=== PATIENT | female | born 2000 | race African-American/Black ===

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

== ENCOUNTER 2018-05-22 22:23 | Emergency (ER) | payer OTHER ==
[2018-05-22] MEDS ORDERED: BUFFERED LIDOCAINE 10 ML SYRINGE SUBQ STA (22:36)
--- NOTE | 2018-05-22 22:39 | ED Physician Documentation ---
PD HPI UPPER EXT INJURY - Stated complaint Stated Complaint: THUMB SWELLING - Chief complaint Chief Complaint: Ext Problem - History obtained from History obtained from: Patient - History of Present Illness Location: Left (Without injury she has had increasing pain of the left thumb for almost 2 weeks that is unbearable today with swelling of the pulp. No fevers. No possibility of .) Review of Systems Constitutional: denies: Fever, Chills GI: reports: Reviewed and negative : reports: Reviewed and negative PD PAST MEDICAL HISTORY - Past Surgical History Past Surgical History: No - Present Medications Home Medications: Ambulatory Orders Medication Instructions Recorded Confirmed Cephalexin [Keflex] 500 mg PO QID #40 capsule 05/22/18 - Allergies Allergies/Adverse Reactions: Allergies Allergy/AdvReac Type Severity Reaction Status Date / Time No Known Drug Allergies Allergy Verified 05/22/18 22:30 - Social History Does the pt smoke?: No Smoking Status: Never smoker Does the pt drink ETOH?: Yes Does the pt have substance abuse?: No - Immunizations Immunizations are current?: Yes - POLST Patient has POLST: No PD ED PE NORMAL - Vitals Vital signs reviewed: Yes - General General: Alert and oriented X 3, No acute distress - Extremities Extremities: Other (She has a felon of the left thumb pulp which is not quite tense were red yet but it is warm.) - Neuro Neuro: Alert and oriented X 3, Normal speech Results - Vitals Vitals: Vital Signs - 24 hr 05/22/18 22:25 Temperature 37.0 C Heart Rate 94 Respiratory 16 Rate Blood Pressure 123/80 O2 Saturation 97 Oxygen O2 Source Room air Procedures - Abscess I&D (location) L thumb felon Preparation: Chlorhexadine, Other (Digital block with buffered lidocaine) Incision: Other (The radial side of the nailbed started leaking pus after the digital block with manipulation in the tiny incision, only about 3 mm was made in the pulp and there was not really any pus found there. A dressing was placed and a culture was obtained.) PD MEDICAL DECISION MAKING - Sepsis Event Vital Signs: Vital Signs - 24 hr 05/22/18 22:25 Temperature 37.0 C Heart Rate 94 Respiratory 16 Rate Blood Pressure 123/80 O2 Saturation 97 Oxygen O2 Source Room air Departure - Departure Disposition: 01 Home, Self Care Clinical Impression: Felon of finger of left hand Condition: Good Instructions: ED Abscess IandD Follow-Up: [facility] [Provider Group] Prescriptions: Cephalexin [Keflex] 500 mg PO QID #40 capsule Comments: Schedule wound check with your doctor on Sunday. Return if worsening.
[2018-05-22] MEDS ORDERED: cephALEXin 250 MG CAPSULE PO STA (23:09)
[2018-05-22 23:24] VITALS: BP 132/91
== END 2018-05-22 23:24 | disposition home or self-care (01) ==
LOC: ED 22:23
DX: L03.012 Cellulitis of left finger (principal)
CPT/HCPCS: 10060; 87070; 87205; 99283; A9270; 87181

== ENCOUNTER 2020-12-05 10:37 | Outpatient (CLI) | payer OTHER | END 2020-12-05 10:38 | disposition home or self-care (01) | LOC: LAB 10:37 | PROVIDERS: ATTEND Surgery Surgical Oncology | DX: Z01.89 Encounter for other specified special examinations (principal) | CPT/HCPCS: 36415 ==

== ENCOUNTER 2021-09-21 21:55 | Emergency (ER) | payer SELFPAY ==
[2021-09-21 22:03] VITALS: BP 112/69
--- NOTE | 2021-09-21 22:44 | ED Physician Documentation ---
PD HPI SKIN - Stated complaint Stated Complaint: ALLERGIC RX,ITCHY - Chief complaint Chief Complaint: Allergic Rx - History obtained from History obtained from: Patient - History of Present Illness Timing - onset: How many days ago (5) Timing - duration: Days (5) Timing - details: Gradual onset, Still present Location: Neck, Chest, RUE, LUE Quality / character: Itchy, Discolored, Raised, Crusted. No: Draining Associated symptoms: No: Fever, Myalgias, Joint pain, Headache, Facial swelling, Dyspnea, Abd pain, N/V/D, Urinary sx Contributing factors: Other (went to meet alfredo family in [place] last month and borrowed a jacket.) Similar symptoms before: Has not had sx before Recently seen: Emergency Dept (Seen at [facility] ED where their focus was her lungs and she has no complaints.) - Additional information Additional information: 21-year-old female has developed a rash around her neck and her right forearm and under her breasts. She states is very itchy and it has been present for about 5 days. She has been to [place] to visit her maximilian's family and they are she borrowed a jacket. This was about 1 month ago. She has showered and and used cortisone cream and she continues to have itching and more spots breaking out. Review of Systems Constitutional: denies: Fever Ears: denies: Ear pain Nose: denies: Congestion Throat: denies: Sore throat Cardiac: denies: Chest pain / pressure Respiratory: denies: Dyspnea, Cough GI: denies: Abdominal Pain, Nausea, Vomiting : denies: Dysuria Skin: reports: Rash Musculoskeletal: denies: Neck pain, Back pain, Extremity pain PD PAST MEDICAL HISTORY - Past Medical History Cardiovascular: None Respiratory: None Neuro: None Endocrine/Autoimmune: None GI: None COOK CANDY: None : None HEENT: None Psych: None Musculoskeletal: None Derm: None - Past Surgical History Past Surgical History: No - Present Medications Home Medications: Ambulatory Orders Medication Instructions Recorded Confirmed Permethrin 5% Cream [Permethrin 30 gm TOP ONCE #60 gm 09/21/21 Cream] - Allergies Allergies/Adverse Reactions: Allergies Allergy/AdvReac Type Severity Reaction Status Date / Time No Known Drug Allergies Allergy Verified 09/21/21 21:59 - Social History Does the pt smoke?: No Smoking Status: Never smoker Does the pt drink ETOH?: Yes ETOH Use: Wine Does the pt have substance abuse?: Yes Substance Use and Type: Marijuana - Immunizations Immunizations are current?: Yes - POLST Patient has POLST: No PD ED PE NORMAL - Vitals Vital signs reviewed: Yes (normal ) - General General: Alert and oriented X 3, No acute distress, Well developed/nourished - HEENT HEENT: Atraumatic, PERRL, EOMI - Neck Neck: Supple, no meningeal sign, No bony TTP, Other (around the neck posteriorly there are multiple plaques with crusting and serpantine linear segments. ) - Respiratory Respiratory: No respiratory distress - Derm Derm: Normal color, Warm and dry, Other (rash is described worse over the neck less on the right forearm and even less below the breasts. ) - Extremities Extremities: No deformity, No edema - Neuro Neuro: Alert and oriented X 3, marine steward 2-12 intact, No motor deficit, No sensory deficit, Normal speech Eye Opening: Spontaneous Motor: Obeys Commands Verbal: Oriented GCS Score: 15 - Psych Psych: Normal mood, Normal affect Results - Vitals Vitals: Vital Signs - 24 hr 09/21/21 21:59 Temperature 36.6 C Heart Rate 86 Respiratory 18 Rate Blood Pressure 112/69 O2 Saturation 98 Oxygen O2 Source Room air PD MEDICAL DECISION MAKING - ED course Complexity details: reviewed results, re-evaluated patient, considered differential, d/w patient ED course: 21 y/o female with a puritic rash that is consistent with scabies is prescribed permithrin with follow up with derm for failure. Departure - Departure Disposition: 01 Home, Self Care Clinical Impression: Scabies Condition: Stable Instructions: ED Scabies Follow-Up: [facility] [Provider Group] [facility] [Provider Group] Prescriptions: Permethrin 5% Cream [Permethrin Cream] 30 gm TOP ONCE #60 gm Comments: Aujuna, Today it appears the rash you have is most consistent with scabies. This usually takes about 1 month to appear after exposure. Itching is the primary symptom with a rash. The skin is very uncomfortable. The treatment is fairly straightforward. Use the permethrin neck down and shower in the morning. Repeat in 1 week. In addition wash your clothing and bedding. If you do not have relief of these symptoms with treatment the follow-up should be with [facility]. The script for permethrin has been e-scribed to [facility] in [place]. Discharge Date/Time: 09/21/21 23:02
[2021-09-21] MEDS: PERMETHRIN 5% CREAM 60 GM TUBE TOP ONE (22:52)
== END 2021-09-21 23:02 | disposition home or self-care (01) ==
LOC: ED 21:55
DX: B86 Scabies (principal)
CPT/HCPCS: 99282; 99283

== ENCOUNTER 2021-12-10 03:56 | Emergency (ER) | payer OTHER ==
--- NOTE | 2021-12-10 03:56 | ED Physician Documentation ---
History of Present Illness - Stated complaint Stated Complaint: FIT - History obtained from History obtained from: Patient, Police - History of Present Illness Timing: Other (asymptomatic) Pain level now: 0 - Additonal information Additional information: brought in by police for a fit for confinement exam. Patient is under arrest for possible DUI. Patient is awake, alert, answers appropriately, and asymptomatic. Review of Systems Cardiac: denies: Chest pain / pressure Respiratory: denies: Dyspnea GI: denies: Abdominal Pain : denies: Now [facility] PD PAST MEDICAL HISTORY - Past Medical History Past Medical History: No - Present Medications Home Medications: Ambulatory Orders Medication Instructions Recorded Confirmed Permethrin 5% Cream [Permethrin 30 gm TOP ONCE #60 gm 09/21/21 Cream] - Allergies Allergies/Adverse Reactions: Allergies Allergy/AdvReac Type Severity Reaction Status Date / Time No Known Drug Allergies Allergy Verified 12/10/21 04:03 PD ED PE NORMAL - Vitals Vital signs reviewed: Yes - General General: Alert and oriented X 3, No acute distress, Well developed/nourished - HEENT HEENT: Atraumatic, PERRL, EOMI - Cardiac Cardiac: RRR, No murmur - Respiratory Respiratory: No respiratory distress, Clear bilaterally - Abdomen Abdomen: Soft, Non tender - Neuro Neuro: Alert and oriented X 3 Eye Opening: Spontaneous Motor: Obeys Commands Verbal: Oriented GCS Score: 15 Results - Vitals Vitals: Vital Signs - 24 hr 12/10/21 03:59 Temperature 35.5 C L Heart Rate 88 Respiratory 18 Rate Blood Pressure 130/72 O2 Saturation 100 Oxygen O2 Source Room air PD MEDICAL DECISION MAKING - ED course Complexity details: considered differential, d/w patient ED course: asymptomatic and is fit for confinement at this time Departure - Departure Disposition: 01 Home, Self Care Clinical Impression: Medically fit for discharge Condition: Good Instructions: ED Screening Exam Medical Nonurgent Discharge Date/Time: 12/10/21 04:13
[2021-12-10 04:03] VITALS: BP 130/72
== END 2021-12-10 04:13 | disposition home or self-care (01) ==
LOC: ED 03:56
DX: Z02.89 Encounter for other administrative examinations (principal)
CPT/HCPCS: 99281